=== PATIENT | male | born 1975 | race Caucasian/White ===

== ENCOUNTER 2016-12-04 14:40 | Emergency (ER) | payer BC ==
[2016-12-04 15:17] LABS: HEMOGLOBIN 15.5 gm/dl (14.0-17.5); WHITE BLOOD COUNT 6.2 K/UL (4.5-11.0)
[2016-12-04 15:36] LABS: BUN/CREATININE RATIO 15 (0-10)
== END 2016-12-04 18:58 | disposition home or self-care (01) ==
LOC: ER1 14:40
PROVIDERS: Specialist/Technologist Athletic Trainer
DX: S20.219A Contusion of unspecified front wall of thorax, initial encounter (principal); S19.9XXA Unspecified injury of neck, initial encounter; I10 Essential (primary) hypertension; V49.40XA Driver injured in collision with unspecified motor vehicles in traffic accident, initial encounter; W22.11XA Striking against or struck by driver side automobile airbag, initial encounter
CPT/HCPCS: 36415; 70450; 71250; 72125; 80053; 85025; 85610; 85730; 93005; 96361; 96374; 96375; 99284; J2270; J2405

== ENCOUNTER → 2017-02-20 | Outpatient (CLI) | payer BC | LOC: EMI 13:00 | DX: S09.90XA Unspecified injury of head, initial encounter (principal); R90.89 Other abnormal findings on diagnostic imaging of central nervous system | CPT/HCPCS: 70551 ==

== ENCOUNTER → 2020-10-08 | Outpatient (CLI) | payer OTHER ==
[~2020-10-08] MED LIST: CAPOZIDE 25/15 T1 EA PO; FLUOXETINE HCL40 MG PO; KLONOPIN TAB 00.5 MG PO; KLOR-CON M1010 MEQ PO; LIPITOR TAB 2020 MG PO; NITROSTAT 0.40.4 MG SL; NORVASC 5 MG TAB5 MG PO; PROTONIX 40 MG40 M1 PO; TENORMIN 50 MG50 MG PO
== END ==
LOC: EXRD 09:45
DX: M25.569 Pain in unspecified knee (principal)
CPT/HCPCS: 73564

== ENCOUNTER → 2021-03-26 | Outpatient (CLI) | payer OTHER | LOC: KOH-I 09:14 | DX: R74.8 Abnormal levels of other serum enzymes (principal); R16.0 Hepatomegaly, not elsewhere classified; K76.0 Fatty (change of) liver, not elsewhere classified; N28.1 Cyst of kidney, acquired | CPT/HCPCS: 76705 ==

== ENCOUNTER 2021-06-16 11:37 | Observation (INO) | payer OTHER ==
[~2021-06-16] VITALS: Ht 177.8 cm; Wt 97.1 kg
[~2021-06-16 11:37] MED LIST changes: -NORVASC 5 MG TAB5 MG PO; +NORVASC10 MG PO
[2021-06-16 12:22] LABS: HEMOGLOBIN 15.3 gm/dl (14.0-17.5); RED BLOOD COUNT 4.81 M/UL (4.20-5.50); WHITE BLOOD COUNT 4.4 K/UL (4.5-11.0)
[2021-06-16 13:15] LABS: BUN/CREATININE RATIO 16 (0-10)
[2021-06-16] MEDS ORDERED: ALLOPURINOL100 MG PO (15:05)
[2021-06-16] MEDS ORDERED: GABAPENTIN800 MG PO (15:07)
[2021-06-16] MEDS ORDERED: HYDROCHLOROTHIA25 MG PO (15:08)
[2021-06-16] MEDS ORDERED: LOSARTAN POTASS25 MG PO (15:09)
[2021-06-16] MEDS ORDERED: REXULTI0.5 MG PO (15:09)
[2021-06-16] MEDS ORDERED: WELLBUTRIN XL150 MG PO (15:10)
[2021-06-16] MEDS ORDERED: WELLBUTRIN XL300 MG PO (15:11)
[2021-06-16] MEDS ORDERED: PRAZOSIN HCL5 MG PO (15:11)
[2021-06-16] MEDS ORDERED: BUSPIRONE HCL15 MG PO (15:11)
[2021-06-16] MEDS ORDERED: CRESTOR10 MG PO (15:12)
[2021-06-16] MEDS ORDERED: LANTUS SOL100 UNIT/1 SQ (15:12)
[2021-06-16] MEDS ORDERED: VASCEPA1 GM PO (15:13)
[2021-06-16] MEDS ORDERED: VITAMIN D31250 MCG PO (15:13)
[2021-06-16] MEDS ORDERED: METFORMIN HCL1000 MG PO (15:13)
[2021-06-16] MEDS ORDERED: ASPIRIN81 MG PO (15:14)
[2021-06-17] MEDS ORDERED: NITROGLYCERIN0.4 MG SL (13:25)
[2021-06-17] MEDS ORDERED: ISOSORBIDE MONO30 MG PO (13:28)
--- NOTE | 2021-06-17 15:32 | NUR ---
DISCUSSED WITH THE PT IF HE WOULD LIKE HIS FLU INJECTION BEFORE DISCHARGE. PT STATED THAT HE WOULD RATHER WAIT AND GET THIS INJECTION AT THE DOCTOR OFFICE AT A LATER TIME. PREPARING PT FOR DISCHARGE.
== END 2021-06-17 15:57 | disposition home or self-care (01) ==
LOC: ER1 11:37 → CDU 13:52 → MED SURG 4 19:12
PROVIDERS: Physician Assistant; ADMIT Internal Medicine
DX: R07.89 Other chest pain (principal); I10 Essential (primary) hypertension; E78.5 Hyperlipidemia, unspecified; E11.40 Type 2 diabetes mellitus with diabetic neuropathy, unspecified; E11.43 Type 2 diabetes mellitus with diabetic autonomic (poly)neuropathy; K31.84 Gastroparesis; M10.9 Gout, unspecified; K76.0 Fatty (change of) liver, not elsewhere classified; Z20.822 Contact with and (suspected) exposure to COVID-19; Z79.4 Long term (current) use of insulin; Z79.84 Long term (current) use of oral hypoglycemic drugs; Z79.82 Long term (current) use of aspirin; Z79.899 Other long term (current) drug therapy; Z87.891 Personal history of nicotine dependence; Z88.6 Allergy status to analgesic agent
CPT/HCPCS: ECHO; 36415; 71045; 78452; 80053; 80061; 82550; 82553; 82962; 83036; 83874; 84484; 85025; 93005; 93017; 93306; 99285; A9502; G0378; U0002

== ENCOUNTER 2021-09-05 14:58 | Emergency (ER) | payer OTHER ==
[~2021-09-05 14:58] MED LIST changes: +ALLOPURINOL100 MG PO; +ASPIRIN81 MG PO; +BUSPIRONE HCL15 MG PO; +CRESTOR10 MG PO; +GABAPENTIN800 MG PO; +HYDROCHLOROTHIA25 MG PO; +ISOSORBIDE MONO30 MG PO; +LANTUS SOL100 UNIT/1 SQ; +LOSARTAN POTASS25 MG PO; +METFORMIN HCL1000 MG PO; +NITROGLYCERIN0.4 MG SL; +PRAZOSIN HCL5 MG PO; +REXULTI0.5 MG PO; +VASCEPA1 GM PO; +VITAMIN D31250 MCG PO; +WELLBUTRIN XL150 MG PO; +WELLBUTRIN XL300 MG PO
== END 2021-09-05 22:02 | disposition home or self-care (01) ==
LOC: ER1 14:58
DX: U07.1 COVID-19 (principal); I10 Essential (primary) hypertension; E11.40 Type 2 diabetes mellitus with diabetic neuropathy, unspecified; Z23 Encounter for immunization; Z79.4 Long term (current) use of insulin
CPT/HCPCS: 99283; M0245